=== PATIENT | male | born 1985 | race Caucasian/White ===

== ENCOUNTER 2017-02-17 21:32 | Emergency (ER) | payer SELFPAY ==
[2017-02-17 21:41] VITALS: BP 132/78; PULSE 90; RESP 16; O2SAT 99
--- NOTE | 2017-02-17 22:09 | ED.REPORT ---
HPI-Rash / Abscess Date of Service Feb 17, 2017 ED Provider: Doc,Ed MD Nursing Notes Stated Complaint: POSSIBLE SPIDER BITE Chief Complaint: Skin Rash/Abscess Allergies: Coded Allergies: amoxicillin (Unverified Allergy, Unknown, 02/17/17) clavulanic acid (Unverified Allergy, Unknown, 02/17/17) Uncoded Allergies: SULFA (Allergy, Unknown, 02/17/17) Scheduled Cephalexin (Keflex) 500 Mg Capsule 500 MG PO TID General Time Seen by MD: 22:08 Physical Exam Initial Vital Signs Vital Signs (First) Date Time Temp Pulse Resp B/P Pulse Ox O2 Delivery O2 Flow Rate FiO2 02/17/17 21:41 37 90 16 132/78 99 Room Air Discharge & Departure Referrals: NOPCP (PCP) Ector Montes DO Feb 17, 2017 22:09
--- NOTE | 2017-02-17 22:21 | ED.REPORT ---
HPI-Rash / Abscess Date of Service Feb 17, 2017 ED Provider: Taty Mccann MD Patient is an otherwise healthy 32 year old male who presents to the ED concerned about a possible spider bite on his L forearm onset yesterday. 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 He took Benadryl at onset yesterday without relief. Today his pain extends into his armpit. He denies fever, chills, vomiting, or any other symptoms. He does not use IV drugs. Nursing Notes Stated Complaint: POSSIBLE SPIDER BITE Chief Complaint: Skin Rash/Abscess Nursing Notes Reviewed: Yes Allergies: Coded Allergies: amoxicillin (Unverified Allergy, Unknown, 02/17/17) clavulanic acid (Unverified Allergy, Unknown, 02/17/17) Uncoded Allergies: SULFA (Allergy, Unknown, 02/17/17) Scheduled Cephalexin (Keflex) 500 Mg Capsule 500 MG PO TID General Time Seen by MD: 22:19 Chief Complaint Red area Hx Obtained From: Patient Arrived By: Walk-in Onset Occurred: Yesterday Symptom Duration: Since onset Past Medical History Past Medical History Denies Past Surgical History Bialt hernia repair Smoking History Never Smoker Social History Drug Use: Denies drug use Ambulatory Status Independent Review of Systems Constitutional: Denies: Chills, Fever GI: Denies: Vomiting Musculoskeletal: Reports: Extremity pain, Extremity swelling Complete sys rev & neg: except as marked. Physical Exam Initial Vital Signs Vital Signs (First) Date Time Temp Pulse Resp B/P Pulse Ox O2 Delivery O2 Flow Rate FiO2 02/17/17 21:41 37 90 16 132/78 99 Room Air Initial VS: Reviewed, Vital signs normal Head / Eyes: Atraumatic, Normocephalic Neck: Full range of motion Respiratory: Breath sounds normal, Clear to auscultation, No respiratory distress Cardiovascular: Regular rate & rhythm, Heart sounds normal, Intact distal pulses Neurologic: Alert, Oriented, Nonfocal Psychiatric: Mood/affect normal, Behavior normal, Normal thought content General/Constitutional: Awake, Alert, Well developed Skin: Dry 3 tiny areas of skin breakdown that may be consistent with some type of insect bite. 3x4 cm area of inflammation on the L forearm that is slightly warm. Left Forearm: Positive: Warmth present Mild tenderness with flexion and extension of forearm Mild axillary adenopathy No lymphangitic streaks. Re-Eval/Medical Decision Re-Evaluation/Progress : Time of Eval: 22:30 Re-Evaluation/Progress Note: Discussed plan for discharge. Patient understands and agrees with plan. All questions addressed at this time. Counseled Regarding: Diagnosis, Need for follow-up, When/why to return to ED Discharge & Departure Impression: Primary Impression: Cellulitis Site of cellulitis: extremity Site of cellulitis of extremity: upper extremity Laterality: left Qualified Code: L03.114 - Cellulitis of left upper limb Disposition: Home Discharge Condition All VS Reviewed: Yes Condition: Stable Additional Instructions: This area on your forearm looks like a developing cellulitis (bacterial infection) rather than an actual spider bite. He did all of the right things with trying Benadryl first. Now with the increased swelling and pain as well as swollen lymph nodes in your armpit, it is appropriate to add antibiotics Please take 500 mg of Keflex 3 times a day for 7 days. You had your first dose in the emergency room and need to fill the prescription tomorrow and continue. Continue to use ibuprofen as needed for the pain and inflammation. He may find the ice is helpful as well. If you feel that you are getting worse, notice increasing redness or actual drainage, begin having fevers or chills, please return to the ER. Referrals: NOPCP (PCP) Scribe Attestation Portions of this note were transcribed by George Veloz. I, Dr. Mccann personally performed the history, physical exam and medical decision-making; I reviewed and confirmed the accuracy of the information in the transcribed note. Signed by: George Veloz 02/17/17, 2231 Taty Mccann MD Feb 17, 2017 22:21 GEORGE VELOZ Feb 17, 2017 22:28
[2017-02-17] MEDS ORDERED: CEPH-512 PO (22:27)
[2017-02-17 22:54] VITALS: BP 132/78; PULSE 90; RESP 16; O2SAT 99
== END 2017-02-17 22:58 | disposition home or self-care (01) ==
LOC: SED 21:32
DX: L03.114 Cellulitis of left upper limb (principal); Z88.0 Allergy status to penicillin; Z88.8 Allergy status to other drugs, medicaments and biological substances